=== PATIENT | male | born 1975 | race Caucasian/White ===

== ENCOUNTER 2023-01-19 10:04 | Emergency (ER) | payer OTHER, SELFPAY ==
--- NOTE | ~2023-01-19 | XR_ITS ---
EXAMINATION: XR CHEST CLINICAL INFORMATION: Dyspnea COMPARISON: None available. TECHNIQUE: Frontal view of the chest was obtained. FINDINGS: No significant abnormality is noted involving the heart, lungs, mediastinum, bony thorax or soft tissues. XR/XR chest 1V IMPRESSION: No acute cardiopulmonary disease.
[2023-01-19 10:08] VITALS: BP 158/94; PULSE 59; RESP 18; TEMP 36.6; O2SAT 98; BMI 35.1
--- NOTE | 2023-01-19 10:16 | ECG_ITS ---
Test Reason : dyspnea Blood Pressure : / mmHG Vent. Rate : 053 BPM Atrial Rate : 053 BPM P-R Int : 164 ms QRS Dur : 104 ms QT Int : 456 ms P-R-T Axes : 057 005 043 degrees QTc Int : 427 ms Sinus bradycardia Incomplete right bundle branch block Cannot rule out Anterior infarct , age undetermined Abnormal ECG No previous ECGs available Referred By: Henrietta Wilkins Electronically Signed By:AMOS FAJARDO
--- NOTE | 2023-01-19 10:31 | ED_ITS ---
HPI - Asthma General Chief Complaint: Asthma Stated Complaint: Asthma Time Seen by Provider: 01/19/23 10:30 Source: patient Mode of arrival: ambulatory Limitations: no limitations History of Present Illness HPI Narrative: 47 yo male with history of asthma on albuterol and symbicort presents to the ER for 1 day history of SOB and wheezing. He reports running out of his asthma medications 1 month ago due to lack on insurance. No chest pain or dizziness and does not report known trigger for his SOB. Patient reports he has insurance as of yesterday and will be able to supervisor of way asthma medications this week. MD complaint: shortness of breath Onset (ago): day(s) (1) Severity: mild Context: ran out of meds Associated symptoms: none Related Data Previous Rx's Medication Instructions Recorded albuterol sulfate 90 mcg/actuation 2 puff inhalation Q6H PRN 01/19/23 aerosol inhaler shortness of breath or wheezing #8.5 grams budesonide-formoterol HFA 160 1 inh inhalation BID #10.2 grams 01/19/23 mcg-4.5 mcg/actuation aerosol inhaler (Symbicort) prednisone 20 mg tablet 40 mg (2 x 20 mg) PO DAILY #10 tabs 01/19/23 Allergies Allergy/AdvReac Type Severity Reaction Status Date / Time No Known Allergies Allergy Verified 01/19/23 10:07 Review of Systems 2 Review of Systems: Yes all other systems are reviewed and are negative [facility] Social History Social History Advance Directives: No Advance Directives Information Provided: No Physical Exam 2 Vital Signs: Vital Signs: Last Vital Signs Temp 97.8 F 01/19/23 10:08 Pulse 6 L 01/19/23 10:59 Resp 20 01/19/23 10:59 BP 162/91 H 01/19/23 10:59 Pulse Ox 98 01/19/23 10:59 O2 Del Method Room Air 01/19/23 10:59 BMI result Body Mass Index 35.1 Appearance: Alert. Oriented X3. No acute distress. Head: normocephalic, atraumatic. Eyes: Pupils equal, round and reactive to light. ENT: Pharynx normal. No tonsillar swelling or exudate. Neck: Normal inspection. Neck supple. CVS: Normal heart rate and rhythm. Pulses normal. Respiratory: No respiratory distress. +mild bilateral wheezing on auscultation. Skin: Skin warm and dry. Normal skin color. Normal skin turgor. No rashes. Extremities: No lower extremity edema. No joint swelling. Neuro/psych: gross and normal, nonfocal. Medications Administered Discontinued Medications Generic Name Dose Route Start Last Admin Trade Name Juani PRN Reason Stop Dose Admin Albuterol/Ipratropium 3 ml 01/19/23 10:43 01/19/23 10:46 Albuterol/Iprat 2.5/0.5mg 3 Ml Ampul.Neb INHALE 01/19/23 10:44 3 ml ONCE ONE Administration Prednisone 60 mg 01/19/23 10:46 01/19/23 10:52 Prednisone 20 Mg Tablet PO 01/19/23 10:47 60 mg ONCE ONE Administration Medical Decision Making Medical Decision Making [facility] Narrative: 47 yo male with history of asthma on albuterol and symbicort presents to the ER for 1 day history of SOB and wheezing after running out of asthma meds 1 month ago. SpO2 98%. Mild wheezing on PE but patient in no acute distress. chest xray normal. Patient given DuoNeb and prednisone 60mg in ED. improvement in aeration and symptoms on re-evaluation. Will be discharged on prednisone 40mg x5 days. Patient was instructed to get refill on his asthma medications and follow up with his primary care if he has an issue doing so. Also was educated on importance of using spacer with his albuterol and symbicort. Patient instructed to return to ED if symptoms persist or get worse. Differential Diagnosis Differential Diagnoses: The differential diagnosis associated with the presentation includes Acute asthma exacerbation, pneumonia, viral infection (covid/flu). Very low suspicion for PE or COPD. Admission/Observation Consideration of admission/observation: Escalation of care including admission/observation considered considered obs on arrival, improved w/ neb and steroids Lab Data [facility] Lab Attestation statement: I reviewed the patient's lab results. no leukocytosis, trop neg 01/19/23 10:30 01/19/23 10:30 Labs: Lab Results 01/19/23 Range/Units 10:30 WBC 6.7 (4.8-10.8) X10*3/uL RBC 4.95 (4.60-5.80) X10*6/uL Hgb 14.4 (14.0-18.0) g/dl Hct 42.6 (42.0-52.0) % MCV 86.1 (80.0-98.0) fL MCH 29.1 (27.0-33.0) pg MCHC 33.8 (31.0-36.0) g/dl RDW 13.4 (11.0-16.0) % Plt Count 233 (160-400) X10*3/uL MPV 8.6 L (9.4-12.4) fL Immature Gran % (Auto) 0.1 (0.0-0.4) % Neut % (Auto) 45.0 (45-73) % Lymph % (Auto) 37.1 (20-40) % [place] % (Auto) 9.4 (2-11) % Eos % (Auto) 7.5 H (0-4) % Baso % (Auto) 0.9 (0-2) % Lymph # (Auto) 2.5 (1.2-4.9) X10*3/uL [place] # (Auto) 0.6 (0.1-1.2) X10*3/uL Eos # (Auto) 0.5 H (0.0-0.4) X10*3/uL Baso # (Auto) 0.1 (0.0-0.2) X10*3/uL Abs Immat Gran (auto) 0.01 (0.00-0.03) X10*3/uL Absolute Neuts (auto) 3.0 (2.0-8.3) x10*3/uL Absolute Nucleated RBC 0.000 (0.0-0.012) X10*3/uL Nucleated RBC % (auto) 0.0 (0.0-0.2) /100WBC Sodium 138 (135-145) mmol/L Potassium 4.0 (3.3-5.1) mmol/L Chloride 103 (96-108) mmol/L Carbon Dioxide 25 (22-29) mmol/L Anion Gap 14 (12-20) BUN 15 (9-16) mg/dL Creatinine 0.88 (0.5-1.4) mg/dL Estim Creat Clear Calc 138.1 Estimated GFR > 60 Random Glucose 100 (60-115) mg/dL Calcium 9.7 (8.4-10.2) mg/dL Magnesium 2.3 (1.6-2.6) mg/dL Total Bilirubin 0.7 (0.0-1.0) mg/dL Direct Bilirubin 0.2 (0.0-0.5) mg/dL AST 21 (5-37) U/L ALT 14 (0-40) U/L Alkaline Phosphatase 58 (39-117) U/L Troponin I High Sens < 2.7 (<3.5-35.0) ng/L Total Protein 7.7 (6.5-8.0) g/dL Albumin 4.5 (3.5-5.0) g/dL COVID-19 ([facility]) Negative (Negative) COVID-19 Clin Com See Note Independent Interpretation I performed an independent interpretation of an: EKG and Plain X-Ray Interpretation: ekg w/ sinus bradycardia, HR 53 bpm, incomplete RBBB. no st segment elevations or depressions cxr clear, no PNA or effusion Radiology Impression Discussion of test interpretation with radiology: I have reviewed the radiologist's reading. Radiologist Impression: EXAMINATION: XR CHEST CLINICAL INFORMATION: Dyspnea COMPARISON: None available. TECHNIQUE: Frontal view of the chest was obtained. FINDINGS: No significant abnormality is noted involving the heart, lungs, mediastinum, bony thorax or soft tissues. XR/XR chest 1V IMPRESSION: No acute cardiopulmonary disease. Prescription Management I considered prescription management with: Antibiotic and Other (steroids, albuterol) Chronic Conditions Patient?s care impacted by: Other (asthma) Social Determinants Patient?s care significantly limited by Social Determinants of Health including: Problems related to primary support group and Other Social Determinant of Health no PCP Critical Care Time Critical Care Time Critical Care Time: No Discharge Plan Discharge Clinical Impression: Asthma Qualifiers: Asthma severity: mild Asthma persistence: intermittent Asthma complication type: with acute exacerbation Qualified Code(s): J45.21 - Mild intermittent asthma with (acute) exacerbation Patient Disposition: Home, Self-Care Instructions: Asthma (DC) Additional Instructions: Your lab workup, chest x-ray and viral studies today were negative. Take the prescribed prednisone as directed - starting tomorrow - you were given 1st dose in the ER No need to use the symbicort while you are on oral prednisone, resume this once the prednisone is done Use the albuterol every 4 hours as needed Follow up with your doctor If you develop new or worsening symptoms call 911 or come back to the ER for further evaluation. Prescriptions: New budesonide-formoterol [Symbicort] 160-4.5 mcg/actuation HFA aerosol inhaler 1 inh inhalation BID Qty: 10.2 0RF albuterol sulfate 90 mcg/actuation HFA aerosol inhaler 2 puff inhalation Q6H PRN (Reason: shortness of breath or wheezing) Qty: 8.5 0RF prednisone 20 mg tablet 40 mg PO DAILY Qty: 10 0RF Stand Alone Forms: Work/School Release Interventions: ED Discharge Assessment Last Done: 01/19/23 12:02 Discharge Date/Time: 01/19/23 12:06
[2023-01-19 10:36] LABS: MANUAL DIFF FLAG NO
[2023-01-19 10:38] LABS: Basophils Absolute Auto 0.1 X10*3/uL (0.0-0.2); Basophils Percent Auto 0.9 % (0-2); Eosinophils Absolute Auto 0.5 X10*3/uL (0.0-0.4); Eosinophils Percent Auto 7.5 % (0-4); Hematocrit 42.6 % (42.0-52.0); Hemoglobin 14.4 g/dl (14.0-18.0); Imm Gran Abs Auto 0.01 X10*3/uL (0.00-0.03); Imm Gran Pct Auto 0.1 % (0.0-0.4); Lymphocytes Absolute Auto 2.5 X10*3/uL (1.2-4.9); Lymphocytes Percent Auto 37.1 % (20-40); Mean Corpuscular HGB Conc 33.8 g/dl (31.0-36.0); Mean Corpuscular Hemoglobin 29.1 pg (27.0-33.0); Mean Corpuscular Volume 86.1 fL (80.0-98.0); Mean Platelet Volume 8.6 fL (9.4-12.4); Monocytes Absolute Auto 0.6 X10*3/uL (0.1-1.2); Monocytes Percent Auto 9.4 % (2-11); Platelet Count 233 X10*3/uL (160-400); Red Blood Count 4.95 X10*6/uL (4.60-5.80); Red Cell Distribution Width 13.4 % (11.0-16.0); White Blood Count 6.7 X10*3/uL (4.8-10.8)
[2023-01-19] MEDS: Albuterol/Iprat 2.5/0.5MG 3 ML AMPUL.NEB INHALE (10:46)
[2023-01-19 10:48] VITALS: PULSE 65; RESP 17; O2SAT 100
[2023-01-19] MEDS: predniSONE 20 MG TABLET 60 MG PO (10:52)
[2023-01-19 10:55] LABS: Alanine Aminotransferase 14 U/L (0-40); Albumin Level 4.5 g/dL (3.5-5.0); Alkaline Phosphatase 58 U/L (39-117); Anion Gap 14 (12-20); Aspartate Amino Transferase 21 U/L (5-37); Bilirubin Direct 0.2 mg/dL (0.0-0.5); Bilirubin Total 0.7 mg/dL (0.0-1.0); Blood Urea Nitrogen 15 mg/dL (9-16); Calcium 9.7 mg/dL (8.4-10.2); Carbon Dioxide 25 mmol/L (22-29); Chloride 103 mmol/L (96-108); Creatinine Clr Calc Pharmacy 138.1; Estimated Glomerular Filt Rate > 60; Glucose Random 100 mg/dL (60-115); Magnesium 2.3 mg/dL (1.6-2.6); Sodium 138 mmol/L (135-145); Total Protein 7.7 g/dL (6.5-8.0)
[2023-01-19 10:59] VITALS: BP 162/91; PULSE 6; RESP 20; O2SAT 98
[2023-01-19 11:09] LABS: COVID-19 Test Negative (Negative); IDNOW Serial# 9DB6401D
[2023-01-19 11:17] LABS: Troponin-I High Sensitivity < 2.7 ng/L (<3.5-35.0)
== END 2023-01-19 12:06 | disposition home or self-care (01) ==
PROVIDERS: Emergency Provider Emergency Medicine
DX: J45.21 Mild intermittent asthma with (acute) exacerbation (principal); Z11.52 Encounter for screening for COVID-19
CPT/HCPCS: 36415; 71045; 80048; 80076; 83735; 84484; 85025; 87635; 93005; 94640; 99284